=== PATIENT | male | born 1970 | race Caucasian/White ===

== ENCOUNTER → 2016-09-12 | Outpatient (CLI) | payer MEDICARE ==
[~2016-09-12] MED LIST: ULTR50TA PO
[2016-09-12 08:09] LABS: AUTOMATED NEUTROPHIL # 3.1 TH/MM3 (1.8-7.7); BASOPHIL # 0.1 TH/MM3 (0-0.2); BASOPHIL % 2.6 % (0.0-2.0); EOSINOPHIL % 0.8 % (0.0-4.0); HEMATOCRIT 34.4 % (39.0-51.0); HEMO FLAGS DIFF FINAL; LYMPH % 35.1 % (9.0-44.0); MEAN CELL VOLUME 102.5 FL (80.0-100.0); MEAN CORPUSCULAR HEMOGLOBIN 36.4 PG (27.0-34.0); MEAN CORPUSCULAR HGB CONC 35.5 % (32.0-36.0); MONO % 7.5 % (0.0-8.0); PLATELET COUNT 233 TH/MM3 (150-450); RED BLOOD COUNT 3.35 MIL/MM3 (4.50-5.90); RED CELL DISTRIBUTION WIDTH 13.7 % (11.6-17.2); WHITE BLOOD COUNT 5.7 TH/MM3 (4.0-11.0)
[2016-09-12 08:11] LABS: BLOOD, URINE NEG (NEG); GLUCOSE,URINE NEG (NEG); KETONE, URINE NEG (NEG); MUCUS URINE FEW /lpf (OCC); NITRITE,URINE NEG (NEG); PH, URINE 5.5 (5.0-8.5); SQUAMOUS EPITHELIAL CELL URINE <1 /hpf (0-5); URINE COLOR YELLOW (YELLW/STRAW)
[2016-09-12 08:12] LABS: COMMENT (UR) CULT NOT INDICATED; CULTURE IF INDICATED CULT NOT INDICATED
[2016-09-12 08:29] LABS: ALT (GPT) 110 U/L (12-78); AMYLASE 58 U/L (25-115); ANION GAP 6 MEQ/L (5-15); AST (GOT) 241 U/L (15-37); BLOOD UREA NITROGEN 16 MG/DL (7-18); CHLORIDE 105 MEQ/L (98-107); GLOMERULAR FILTRATION RATE 89 ML/MIN (>89); GLUCOSE,FASTING 158 MG/DL (74-99); POTASSIUM 4.3 MEQ/L (3.5-5.1); SODIUM (NA) 139 MEQ/L (136-145)
[2016-09-12 08:38] LABS: ALKALINE PHOSPHATASE 313 U/L (45-117); HDL CHOLESTEROL 71.8 MG/DL (40.0-60.0); TOTAL BILIRUBIN ADULT 1.2 MG/DL (0.2-1.0)
[2016-09-14 07:53] LABS: CD4/CD8 RATIO 1.1 (0.86-5.00)
[2016-09-14 23:54] LABS: HIV RNA COPIES LESS THAN 20.0 (()); HIV RNA LOG COPIES LESS THAN 1.30 (())
== END ==
LOC: CLAB 07:30
PROVIDERS: ATTEND Internal Medicine Infectious Disease
DX: B20 Human immunodeficiency virus [HIV] disease (principal); E87.8 Other disorders of electrolyte and fluid balance, not elsewhere classified; D64.9 Anemia, unspecified; E78.4 Other hyperlipidemia; A53.9 Syphilis, unspecified; N39.0 Urinary tract infection, site not specified; R94.6 Abnormal results of thyroid function studies; K86.9 Disease of pancreas, unspecified
CPT/HCPCS: 36415; 80053; 80061; 81001; 82150; 83690; 84443; 85025; 86355; 86357; 86359; 86360; 86592; 87536

== ENCOUNTER → 2017-03-22 | Outpatient (CLI) | payer MEDICARE ==
[2017-03-22 09:30] LABS: ANION GAP 6 MEQ/L (5-15); AST (GOT) 45 U/L (15-37); BICARBONATE 28.1 MEQ/L (21.0-32.0); BLOOD UREA NITROGEN 14 MG/DL (7-18); CHLORIDE 102 MEQ/L (98-107); GLOMERULAR FILTRATION RATE 91 ML/MIN (>89); GLUCOSE,FASTING 114 MG/DL (74-99); POTASSIUM 4.9 MEQ/L (3.5-5.1); SODIUM (NA) 136 MEQ/L (136-145)
[2017-03-22 09:31] LABS: ALT (GPT) 51 U/L (12-78)
[2017-03-22 09:33] LABS: ALKALINE PHOSPHATASE 74 U/L (45-117); TOTAL BILIRUBIN ADULT 0.8 MG/DL (0.2-1.0)
[2017-03-24 03:51] LABS: HIV RNA COPIES LESS THAN 20.0 (()); HIV RNA LOG COPIES LESS THAN 1.30 (())
== END ==
LOC: CLAB 08:32
PROVIDERS: ATTEND Specialist
DX: B20 Human immunodeficiency virus [HIV] disease (principal); R94.5 Abnormal results of liver function studies
CPT/HCPCS: 36415; 80053; 82248; 83690; 86355; 86357; 86359; 86360; 87536

== ENCOUNTER 2017-05-16 12:01 | Emergency (ER) | payer MEDICARE ==
[~2017-05-16] VITALS: Ht 175.3 cm; Wt 70.0 kg
[2017-05-16 12:05] VITALS: BP 171/102; PULSE 78; RESP 20; TEMP 99.3; O2SAT 98
[2017-05-16 12:44] LABS: AUTOMATED NEUTROPHIL # 6.5 TH/MM3 (1.8-7.7); BASOPHIL # 0.1 TH/MM3 (0-0.2); BASOPHIL % 1.3 % (0.0-2.0); EOSINOPHIL # 0.1 TH/MM3 (0-0.4); EOSINOPHIL % 0.6 % (0.0-4.0); HEMO FLAGS DIFF FINAL; LYMPH % 20.7 % (9.0-44.0); MEAN CORPUSCULAR HEMOGLOBIN 34.7 PG (27.0-34.0); MONO % 9.7 % (0.0-8.0); NEUT % 67.7 % (16.0-70.0); PLATELET COUNT 164 TH/MM3 (150-450); RED BLOOD COUNT 4.32 MIL/MM3 (4.50-5.90); WHITE BLOOD COUNT 9.6 TH/MM3 (4.0-11.0)
[2017-05-16 13:01] LABS: BICARBONATE 25.6 MEQ/L (21.0-32.0); POTASSIUM 4.1 MEQ/L (3.5-5.1)
[2017-05-16 13:07] VITALS: BP 157/100; PULSE 75; RESP 16; O2SAT 97
[2017-05-16] MEDS ORDERED: CLINDAMYCIN INJ 600 MG in SODIUM CHLORIDE 0.9% INJ 100 ML IV ONE (13:45)
[2017-05-16] MEDS ORDERED: CLIN1CAP6 PO (13:55)
--- NOTE | 2017-05-16 13:56 | PD ---
HPI Chief Complaint: Skin Problem Time Seen by Provider: 13:01 Travel History International Travel<30 days: No Contact w/Intl Traveler<30days: No Traveled to known affect area: No History of Present Illness HPI So 46-year-old man presents emergency Department with skin lesions. He has a sore on the back of his right thigh, and on the back of his right moon. There is a small surrounding area of erythema rumble. On the right thigh. About 3 days ago he thinks may benefit from close by. The right moon started after an abrasion about 2 days ago. No fevers or chills. History of HIV well controlled. No other complaints. History Past Medical History Narrative Medical HIV, CD4 greater than 1000 Social History Alcohol Use: No Tobacco Use: Yes (1 PPD) Allergies-Medications (Allergen,Severity, Reaction): Coded Allergies: No Known Allergies (Verified , 05/16/17) Reported Meds & Prescriptions Reported Meds & Active Scripts Active Review of Systems Except as stated in HPI: all other systems reviewed are Neg Physical Exam Narrative GENERAL: Well-appearing 46-year-old man, no acute distress. SKIN: Focused skin assessment warm/dry. HEAD: Atraumatic. Normocephalic. EYES: Pupils equal and round. No scleral icterus. No injection or drainage. ENT: No nasal bleeding or discharge. Mucous membranes pink and moist. NECK: Trachea midline. No JVD. CARDIOVASCULAR: Regular rate and rhythm. No murmur appreciated. RESPIRATORY: No accessory muscle use. Clear to auscultation. Breath sounds equal bilaterally. GASTROINTESTINAL: Abdomen soft, non-tender, nondistended. Hepatic and splenic margins not palpable. MUSCULOSKELETAL: No obvious deformities. No edema. NEUROLOGICAL: Awake and alert. No obvious cranial nerve deficits. Motor grossly within normal limits. Normal speech. Data Data Last Documented VS Vital Signs Date Time Temp Pulse Resp B/P (MAP) Pulse Ox O2 Delivery O2 Flow Rate FiO2 05/16/17 13:07 75 16 157/100 (119) 97 Room Air 05/16/17 12:05 99.3 Orders Orders Complete Blood Count With Diff (05/16/17 12:19) Basic Metabolic Panel (Bmp) (05/16/17 12:19) Lactic Acid (05/16/17 12:19) Blood Culture (05/16/17 12:19) Clindamycin Inj (Cleocin Inj) (05/16/17 13:45) Labs Laboratory Tests Test 05/16/17 12:25 White Blood Count 9.6 TH/MM3 Red Blood Count 4.32 MIL/MM3 Hemoglobin 15.0 GM/DL Hematocrit 44.0 % Mean Corpuscular Volume 102.0 FL Mean Corpuscular Hemoglobin 34.7 PG Mean Corpuscular Hemoglobin Concent 34.0 % Red Cell Distribution Width 13.0 % Platelet Count 164 TH/MM3 Mean Platelet Volume 6.5 FL Neutrophils (%) (Auto) 67.7 % Lymphocytes (%) (Auto) 20.7 % Monocytes (%) (Auto) 9.7 % Eosinophils (%) (Auto) 0.6 % Basophils (%) (Auto) 1.3 % Neutrophils # (Auto) 6.5 TH/MM3 Lymphocytes # (Auto) 2.0 TH/MM3 Monocytes # (Auto) 0.9 TH/MM3 Eosinophils # (Auto) 0.1 TH/MM3 Basophils # (Auto) 0.1 TH/MM3 CBC Comment DIFF FINAL Differential Comment Blood Urea Nitrogen 10 MG/DL Creatinine 0.86 MG/DL Random Glucose 109 MG/DL Calcium Level 9.4 MG/DL Sodium Level 134 MEQ/L Potassium Level 4.1 MEQ/L Chloride Level 100 MEQ/L Carbon Dioxide Level 25.6 MEQ/L Anion Gap 8 MEQ/L Estimat Glomerular Filtration Rate 95 ML/MIN Lactic Acid Level 0.9 mmol/L MDM Medical Decision Making Medical Screen Exam Complete: Yes Emergency Medical Condition: Yes Interpretation(s) CBC unremarkable. CMP is unremarkable Lactate normal Differential Diagnosis Infection, some spider bite, sepsis, other Narrative Course Medical decision making 38 year-old woman presents emergent from complaining of a bite and skin infection. They started as a spider bite but there is clearly skin infection 2 areas now. Recommend antibiotic treatment and outpatient follow-up. Diagnosis Primary Impression: Skin infection Patient Instructions: General Instructions Additional Instructions: Take antibiotics as prescribed. Follow-up with your primary doctor in 2-4 days. Return to the emergency department for any worsening pain redness fevers or any other new or worsening symptoms. Med/Other Pt SpecificInfo: Prescription(s) given Scripts Clindamycin (Clindamycin) 300 Mg Cap 300 MG PO Q6H for Infection, #28 CAP 0 Refills Prov: Reggie Romo MD 05/16/17 Disposition: 01 DISCHARGE HOME Condition: Stable Reggie Romo MD May 16, 2017 13:56
== END 2017-05-16 16:08 | disposition home or self-care (01) ==
LOC: NEPE 12:01
DX: L08.9 Local infection of the skin and subcutaneous tissue, unspecified (principal); Z21 Asymptomatic human immunodeficiency virus [HIV] infection status
CPT/HCPCS: 80048; 83605; 85025; 87040; 96365